=== PATIENT | female | born 1930 | race Caucasian/White ===

== ENCOUNTER 2017-05-17 17:46 | Observation (INO) | payer OTHER, MEDICARE ==
[~2017-05-17] VITALS: Ht 160 cm; Wt 93.1 kg
[~2017-05-17 17:46] MED LIST: DIOVAN80 MG PO; Ecotrin PO; Hydrodiuril,Oretic,E PO; LOPRESSOR25 MG PO; NOHOMEMEDS; OMEGA 3 500 SO1 EACH PO; VITAMIN B-2100 MG PO; VITAMIN D5000 UNI1 PO; Zocor PO
[2017-05-17 18:35] LABS: HEMATOCRIT 41.2 % (36.0-46.0); MCH 29.4 PG (29.0-34.0); MCHC 31.8 G/DL (30.0-36.0); MCV 92.6 FL (83-99); MEAN PLAT.VOLUME 10.5 uM^3 (9.5-12.4); PLATELET COUNT 204 K/uL (156-360); RBC DIS.WIDTH-CV 13.2 % (11.8-14.6); RBC DIS.WIDTH-SD 45.1 % (39-53); RED BLOOD COUNT 4.45 M/uL (3.80-5.20)
[2017-05-17 18:44] LABS: CHLORIDE 107 mEq/L (99-109); POTASSIUM 4.1 mEq/L (3.7-5.4); SODIUM 145 mEq/L (136-147)
[2017-05-17 18:45] LABS: GLUCOSE 96 mg/dL (70-99)
[2017-05-17 18:47] LABS: ANION GAP 11 MEQ/L (2-14)
[2017-05-17 18:49] LABS: GFR ESTIMATE (CALCULATED) 50 mL/min/
[2017-05-17 18:50] LABS: UREA NITROGEN (BUN) 27 mg/dL (9-23)
[2017-05-17 19:36] LABS: TOTAL BILIRUBIN 0.6 mg/dL (0.0-1.0)
[2017-05-17 19:37] LABS: ALKALINE PHOSPHATASE 83 IU/L (3-129)
[2017-05-17 19:39] LABS: DIRECT BILIRUBIN 0.2 mg/dL (0.0-0.3)
[2017-05-17 19:40] LABS: LIPASE 68 U/L (1.0-51.0)
[2017-05-17] MEDS ORDERED: COZAAR25 MG PO (23:02)
[2017-05-17] MEDS ORDERED: ASCORBIC ACID500 M3 PO (23:03)
[2017-05-17] MEDS ORDERED: ONE-A-DAY ESSE1 EAC1 PO (23:03)
[2017-05-17] MEDS ORDERED: MAGNESIUM400 M1 PO (23:03)
[2017-05-17] MEDS ORDERED: [UNRECOGNIZED DRUG - OTHER] PO (23:03)
[2017-05-18 00:55] VITALS: BP 150/66
[2017-05-18 03:47] VITALS: BP 123/60
[2017-05-18 07:25] VITALS: BP 144/65
[2017-05-18 11:05] VITALS: BP 150/69
[2017-05-18] MEDS ORDERED: PANTOPRAZOLE SO40 MG PO (13:32)
== END 2017-05-18 14:12 | disposition home or self-care (01) ==
LOC: EME 17:46 → EDOF 23:51 → 2EAST 23:51 → EDOF 23:51 → ENRESERV 23:52 → 2EAST 05-18 00:53
PROC: 0DJ08ZZ Inspection of Upper Intestinal Tract, Via Natural or Artificial Opening Endoscopic (ICD-10-PCS; principal; 2017-05-18)
DX: R13.10 Dysphagia, unspecified (principal); K22.10 Ulcer of esophagus without bleeding; I10 Essential (primary) hypertension; E78.5 Hyperlipidemia, unspecified; Z90.710 Acquired absence of both cervix and uterus; K80.21 Calculus of gallbladder without cholecystitis with obstruction
CPT/HCPCS: 70360; 71020; 76705; 80048; 80076; 81003; 83690; 85027; 93005; 99281; 99285; G0378; J0330; J2405; J2550; J7030; S0028